=== PATIENT | female | born 2000 | race Caucasian/White ===

== ENCOUNTER 2020-09-30 12:07 | Emergency (ER) | payer SELFPAY ==
[~2020-09-30] VITALS: Ht 157.5 cm; Wt 65.0 kg
[2020-09-30] MEDS ORDERED: IV NORMAL SALINE 1,000ML 1,000 ML IV ONE (12:30)
[2020-09-30] MEDS ORDERED: KETOROLAC 30 MG/ML VIAL. IVP ONE (12:30)
--- NOTE | 2020-09-30 12:39 | PHYS DOC ---
General Adult EDM: Chief Complaint: FEVER HPI: HPI: 20-year-old female presents with 2-day history of body aches, low back pain, and general malaise. She is feeling worse today than yesterday. She also has some nasal congestion at this time. She had a fever of 100.1 at home. 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 Review of Systems: Review of Systems: Constitutional: Fever, malaise, body aches. Eyes: Denies change in visual acuity HENT: Congestion Respiratory: Denies cough or shortness of breath Cardiovascular: Denies chest pain or edema GI: Denies abdominal pain, nausea, vomiting, bloody stools or diarrhea : Denies dysuria Musculoskeletal: Denies back pain or joint pain Integument: Denies rash Neurologic: Denies headache, focal weakness or sensory changes Endocrine: Denies polyuria or polydipsia Lymphatic: Denies swollen glands Psychiatric: Denies depression or anxiety Current Medications: Current Meds: Current Medications Medications (Trade) Dose Ordered Sig/Amy Start Time Stop Time Status Last Admin Dose Admin Ketorolac Tromethamine (Toradol 30mg Vial) 30 mg 1X ONCE 09/30/20 12:30 09/30/20 12:31 UNV Sodium Chloride 1,000 ml @ 1,000 mls/hr 1X ONCE 09/30/20 12:30 09/30/20 13:29 Allergies: Allergies: Allergies Coded Allergies Type Severity Reaction Last Updated Verified Sulfa (Sulfonamide Antibiotics) Allergy Unknown 09/30/20 Yes acetaminophen Allergy Unknown 09/30/20 Yes oxycodone Allergy Unknown 09/30/20 Yes Physical Exam: PE: Constitutional: Well developed, well nourished, no acute distress, non-toxic appearance. [] HENT: Normocephalic, atraumatic, bilateral external ears normal, oropharynx moist, no oral exudates, nose normal. [] Eyes: PERRLA, EOMI, conjunctiva normal, no discharge. [] Neck: Normal range of motion, no tenderness, supple, no stridor. [] Cardiovascular: Heart rate regular rhythm, no murmur [] Lungs & Thorax: Bilateral breath sounds clear to auscultation [] Abdomen: Bowel sounds normal, soft, no tenderness, no masses, no pulsatile masses. [] Skin: Warm, dry, no erythema, no rash. [] Back: No tenderness, no CVA tenderness. [] Extremities: No tenderness, no cyanosis, no clubbing, ROM intact, no edema. [] Neurologic: Alert and oriented X 3, normal motor function, normal sensory function, no focal deficits noted. [] Psychologic: Affect normal, judgement normal, mood normal. [] EKG: EKG: [] Radiology/Procedures: Radiology/Procedures: [] Heart Score: Risk Factors: Risk Factors: DM, Current or recent (<one month) smoker, HTN, HLP, family history of CAD, obesity. Risk Scores: Score 0 - 3: 2.5% MACE over next 6 weeks - Discharge Home Score 4 - 6: 20.3% MACE over next 6 weeks - Admit for Clinical Observation Score 7 - 10: 72.7% MACE over next 6 weeks - Early Invasive Strategies Course & Med Decision Making: Course & Med Decision Making Pertinent Labs and Imaging studies reviewed. (See chart for details) The patient has a slightly low white count of 3.3 with platelets of 108. Her urinalysis does show moderate bacteria so I will treat her for urinary tract infection. We did test her for COVID-19. She is stable for discharge at this time. [] Dragon Disclaimer: Dragon Disclaimer: This electronic medical record was generated, in whole or in part, using a voice recognition dictation system. Departure Departure: Impression: Primary Impression: Urinary tract infection Qualified Codes: N30.00 - Acute cystitis without hematuria Additional Impression: Suspected 2019 novel coronavirus infection Disposition: 01 ME HOME SELF CARE/HOMELESS Condition: STABLE Referrals: ITZEL HASSAN MD (PCP) Patient Instructions: Urinary Tract Infection, [id number] Additional Instructions: You have been tested for or diagnosed with COVID-19. It is an infection caused by a new type of coronavirus. COVID-19 will cause cold-like or mild flu symptoms in most. It can cause more severe symptoms like problems breathing in some. There is no treatment for COVID-19. The body will clear the infection over time. Self-care will help to ease discomfort. Steps to Take: Self-Care Rest as needed. Healthy habits may help you feel better. Steps include: Choose healthy foods including fruits and vegetables. Drink water throughout the day. Get plenty of sleep each night. If you smoke, try to quit. It may ease breathing. Avoid alcohol. Keep Others Healthy The virus can spread to others. Droplets are released every time you sneeze or cough. The droplets can get into the mouth, nose, or eyes of people near you and lead to infection. To lower the chances of spreading COVID-19 to others: Stay at home until your doctor has said it is safe to leave. If you tested positive this will mean staying isolated until both of the following are true: At least 7 days have passed since the start of illness. You are free of fever for at least 72 hours without the use of medicine. During this time: - Avoid public areas, events, or transportation. Do not return to work or school until your doctor has said it is safe to do so. - Call ahead if you need to go to a medical center. Let them know you may have COVID-19. It will help them guide you where to go. They may also ask you to wear a facemask when you come to the office. - If you call for emergency medical services, let them know you may have COVID- 19. While at home: - Try to avoid close contact with others. Stay about 6 feet away. - If possible, spend most of your time in a separate room from others. - Use a face mask if you will be in close contact with others such as sharing a room or vehicle. - Have someone wipe down common surfaces in the home. Use household knockdown man every day on areas like doorknobs, counters, or sinks. - Cough or sneeze into a tissue. Throw the tissue away right after use. If a tissue is not available, cough or sneeze into your elbow. - Wash your hands often. Wash them after sneezing or coughing. Use soap and water and wash for at least 20 seconds. Alcohol based hand glove cleaner can be used if soap and water is not available. - Do not prepare food for others. Avoid sharing personal items like forks, spoons, or toothbrushes. - Avoid close contact with pets while you are sick. There is no evidence of the virus passing to pets. This is a safety step until more is known about this virus. Isolation can be frustrating. Social interaction can help. Keep in touch with friends and family through phone and tech options. You can still interact with others in your home, just keep a safe distance of about 6 feet. Follow-up: Your doctors office will check in with you to see if there are any changes in your health. You may be asked to keep track of symptoms to share with them. They will also let you know when you are clear to be in public again. Problems to Look Out For: Contact your doctor if your recovery is not going as you expect. Get emergency care if you have problems such as: - Trouble breathing - Nonstop chest pain or pressure - Changes in awareness, confusion, or problems waking - Lips or face have bluish color - Worsening of symptoms If you think you have an emergency, call for emergency medical services right away. As taken from [facility] Scripts Cephalexin (KEFLEX) 500 Mg Capsule 1 CAP PO TID for UTI for 3 Days, #9 CAP 0 Refills Prov: JB STEVENSON DO 09/30/20 JB STEVENSON DO Sep 30, 2020 12:39
[2020-09-30 13:11] LABS: HEMATOCRIT 41.6 % (36.0-47.0); HEMOGLOBIN 13.7 g/dL (12.0-15.5); MEAN CORPUSCULAR HEMOGLOBIN 29 pg (25-35); MEAN CORPUSCULAR HGB CONC 33 g/dL (31-37); MEAN CORPUSCULAR VOLUME 87 fL (79-100); PLATELET COUNT 108 x10^3/uL (140-400); RED BLOOD COUNT 4.78 x10^6/uL (3.50-5.40); RED CELL DISTRIBUTION WIDTH 12.4 % (11.5-14.5); WHITE BLOOD COUNT 3.3 x10^3/uL (4.0-11.0)
[2020-09-30 13:16] LABS: CALCIUM 9.5 mg/dL (8.5-10.1); CREATININE 0.8 mg/dL (0.6-1.0); GFR 91.4; POTASSIUM 3.6 mmol/L (3.5-5.1)
[2020-09-30 13:22] LABS: ALBUMIN 4.3 g/dL (3.4-5.0); ALBUMIN/GLOBULIN RATIO 1.3 (1.0-1.7); TOTAL BILIRUBIN 0.5 mg/dL (0.2-1.0); TOTAL PROTEIN 7.7 g/dL (6.4-8.2)
[2020-09-30 13:22] LABS: BACTERIA,URINE MOD /HPF (0-FEW); BILIRUBIN,URINE NEG (NEG); CLARITY,URINE HAZY; COLOR,URINE YELLOW; GLUCOSE,URINE NEG (NEG); NITRITE,URINE NEG (NEG); RBC,URINE 0 /HPF (0-2); SQUAMOUS EPITHELIAL CELL,UR MOD /LPF; UROBILINOGEN,URINE 0.2 mg/dL (0.2 mg/dL)
[2020-09-30 13:45] LABS: % BANDS 1 % (0-9); % EOS 1 % (0-5); % LYMPHS 26 % (24-48); % MONOS 12 % (0-10); % SEGS 60 % (35-66)
[2020-09-30 13:46] LABS: PLT ESTIMATE DECREASED (ADEQUATE)
[2020-09-30] MEDS ORDERED: CEPH-264 PO (14:12)
[2020-09-30 14:20] VITALS: BP 112/51
--- NOTE | 2020-10-02 09:10 | NUR ---
IP: notified patient of COVID result, discussed precautions, advised patient to follow-up with PCP and return to ED if needed.
== END 2020-09-30 14:20 | disposition home or self-care (01) ==
LOC: ER 12:07
DX: U07.1 COVID-19 (principal); N30.00 Acute cystitis without hematuria; Z88.2 Allergy status to sulfonamides; Z88.5 Allergy status to narcotic agent; Z88.6 Allergy status to analgesic agent
CPT/HCPCS: 36415; 80053; 81001; 81025; 85007; 85025; 87086; 96361; 96374; 99283; C9803; J1885; J7030; U0003

== ENCOUNTER 2021-04-23 16:02 | Emergency (ER) | payer OTHER ==
[~2021-04-23] VITALS: Ht 160 cm; Wt 68.3 kg
[~2021-04-23 16:02] MED LIST: CEPH-264 PO
--- NOTE | 2021-04-23 16:20 | PHYS DOC ---
Past History Past Medical History: Ovarian Cyst Past Surgical History: Other Additional Past Surgical Histo: WISDOM TEETH Alcohol Use: None General Adult EDM: Chief Complaint: CHEST WALL PAIN HPI: HPI: Patient is a 20-year-old female sent at referral from urgent care for left anterior sharp chest pain. Patient states she first noted the pain when she got to work at 10 AM (6 hours prior to arrival). Patient states the pain is gradually getting worse has been constant for the past 2 to 3 hours. Says is worse with taking a deep breath and palpation. Denies any fevers, cough, short ness of breath. Denies any history of lung problems or wheezing. Had a hydro- inflation procedure done of her bladder 3 weeks ago for interstitial cystitis. Review of Systems: Review of Systems: All other systems within normal limits except for as noted in the HPI Allergies: Allergies: Allergies Coded Allergies Type Severity Reaction Last Updated Verified Sulfa (Sulfonamide Antibiotics) Allergy Unknown 09/30/20 Yes oxycodone Allergy Unknown 09/30/20 Yes Physical Exam: PE: Constitutional: Well developed, well nourished, no acute distress, non-toxic appearance. [] HENT: Normocephalic, atraumatic, bilateral external ears normal, nose normal. [] Eyes: PERRLA, conjunctiva normal, no discharge. [] Neck: No rigidity, supple, no stridor. [] Cardiovascular: Regular rate and rhythm, brisk cap refill [] Lungs & Thorax: Non labored symmetric respirations, no tachypnea or respiratory distress [] Abdomen: Soft, nondistended. Skin: Warm, dry, no erythema, no rash. [] Back: Unremarkable Extremities: No deformities, range of motion grossly intact, no lower extremity edema [] Neurologic: Alert and oriented X 3, no focal deficits noted. [] Psychologic: Affect normal, judgement normal, mood normal. [] EKG: EKG: Sinus tachycardia, heart 113 bpm. Normal axis, no ST elevation or depression, no ectopy. [] Radiology/Procedures: Radiology/Procedures: Exam performed: 2 views of the chest. Indication: Reason: chest pain / Spl. Instructions: / History: Date of Service: 04/23/2021 5:20 PM. Comparison : None available Findings: PA and lateral radiographs of the chest reveal a normal cardiomediastinal contour. The lungs are clear. No pleural fluid is seen. The visualized osseous structures are unremarkable. Impression: No acute cardiopulmonary process seen. [] Impressions: EP interpretation: Chest x-ray unremarkable. Heart Score: C/O Chest Pain: Yes HEART Score for Chest Pain: HEART Score for Chest Pain Response (Comments) Value History Slighlty/Non-Suspicious 0 ECG Normal 0 Age < 45 0 Risk Factors No Risk Factors 0 Troponin < Normal Limit 0 Total 0 Risk Factors: Risk Factors: DM, Current or recent (<one month) smoker, HTN, HLP, family history of CAD, obesity. Risk Scores: Score 0 - 3: 2.5% MACE over next 6 weeks - Discharge Home Score 4 - 6: 20.3% MACE over next 6 weeks - Admit for Clinical Observation Score 7 - 10: 72.7% MACE over next 6 weeks - Early Invasive Strategies Course & Med Decision Making: Course & Med Decision Making Pertinent Labs and Imaging studies reviewed. (See chart for details) [] Dragon Disclaimer: Dragon Disclaimer: This electronic medical record was generated, in whole or in part, using a voice recognition dictation system. Departure Departure: Impression: Primary Impression: Chest pain Disposition: HOME / SELF CARE / HOMELESS Condition: STABLE Referrals: ITZEL HASSAN MD (PCP) Patient Instructions: Chest Wall Pain Scripts Ibuprofen (IBUPROFEN) 600 Mg Tablet 600 MG PO PRN Q6-8HRS PRN for PAIN for 10 Days, #30 TAB Prov: MILANA ADAIR MD 04/23/21 MILANA ADAIR MD April 23, 2021 16:19
[2021-04-23 16:52] LABS: BASO % 1 % (0-3); EOS # 0.1 x10^3/uL (0.0-0.7); EOS % 1 % (0-3); HEMOGLOBIN 14.2 g/dL (12.0-15.5); LYMPH # 1.8 x10^3/uL (1.0-4.8); LYMPH % 31 % (24-48); MEAN CORPUSCULAR HEMOGLOBIN 29 pg (25-35); MEAN CORPUSCULAR HGB CONC 34 g/dL (31-37); MEAN CORPUSCULAR VOLUME 85 fL (79-100); MONO # 0.4 x10^3/uL (0.0-1.1); MONO % 7 % (0-9); NEUT # 3.5 x10^3uL (1.8-7.7); NEUT % 61 % (31-73); PLATELET COUNT 157 x10^3/uL (140-400); RED BLOOD COUNT 4.97 x10^6/uL (3.50-5.40); RED CELL DISTRIBUTION WIDTH 12.5 % (11.5-14.5); WHITE BLOOD COUNT 5.8 x10^3/uL (4.0-11.0)
[2021-04-23 16:56] LABS: BACTERIA,URINE 0 /HPF (0-FEW); BILIRUBIN,URINE NEG (NEG); CLARITY,URINE HAZY; COLOR,URINE PINK; GLUCOSE,URINE NEG (NEG); NITRITE,URINE NEG (NEG); RBC,URINE TNTC /HPF (0-2); UROBILINOGEN,URINE 0.2 mg/dL (0.2 mg/dL); WBC,URINE 0 /HPF (0-4)
[2021-04-23 16:57] LABS: SQUAMOUS EPITHELIAL CELL,UR OCC /LPF
[2021-04-23 17:02] LABS: CALCIUM 9.6 mg/dL (8.5-10.1); CREATININE 0.9 mg/dL (0.6-1.0); GFR 79.8; POTASSIUM 3.4 mmol/L (3.5-5.1)
[2021-04-23 17:17] LABS: MAGNESIUM 2.4 mg/dL (1.8-2.4); TOTAL BILIRUBIN 0.2 mg/dL (0.2-1.0); TOTAL PROTEIN 8.2 g/dL (6.4-8.2)
[2021-04-23] MEDS: KETOROLAC 15 MG/ML VIAL. IVP ONE (17:24)
[2021-04-23 17:45] VITALS: BP 119/77
[2021-04-23] MEDS ORDERED: IBUP600T16 PO (18:06)
--- NOTE | 2021-04-23 18:59 | EKG ---
[address] [address] Test Date: 2021-04-23 Test Time: 16:48:06 Pat Name: SANDOVAL HARMON Department: Room: Gender: F Bi Consultant: : [id number] Requested By: MILANA ADAIR Order Number: [id number] Reading MD: Julien Duran Measurements Intervals [place] Rate: 113 P: 31 NM: 142 QRS: 81 QRSD: 88 T: 22 QT: 366 QTc: 508 Interpretive Statements SINUS TACHYCARDIA Electronically Signed On 04-24-2021 14:59:01 CDT by Julien Duran
--- NOTE | 2021-04-23 19:09 | RAD ---
Exam performed: 2 views of the chest. Indication: Reason: chest pain / Spl. Instructions: / History: Date of Service: 04/23/2021 5:20 PM. Comparison : None available Findings: PA and lateral radiographs of the chest reveal a normal cardiomediastinal contour. The lungs are syl r. No pleural fluid is seen. The visualized osseous structures are unremarkable. Impression: No acute cardiopulmonary process seen. Electronically signed by: Isabelle vEans MD (04/23/2021 7:06 PM) [facility]ITAL[facility]
== END 2021-04-23 18:21 | disposition home or self-care (01) ==
LOC: ER 16:02
DX: R07.89 Other chest pain (principal); Z88.2 Allergy status to sulfonamides; Z88.5 Allergy status to narcotic agent
CPT/HCPCS: 36415; 71046; 80053; 81001; 81025; 83735; 83880; 84484; 85025; 85379; 93005; 96374; 99285; J1885

== ENCOUNTER 2022-03-02 15:28 | Emergency (ER) | payer OTHER ==
[~2022-03-02] VITALS: Ht 160 cm; Wt 62.9 kg
[~2022-03-02 15:28] MED LIST changes: +IBUP600T16 PO
[2022-03-02 15:55] VITALS: BP 105/66
[2022-03-02 16:48] LABS: CLARITY,URINE CLEAR; COLOR,URINE YELLOW; GLUCOSE,URINE 100 mg/dL (NEG)
[2022-03-02 16:49] LABS: BACTERIA,URINE FEW /HPF (0-FEW); NITRITE,URINE POS (NEG); RBC,URINE 0 /HPF (0-2); SQUAMOUS EPITHELIAL CELL,UR MOD /LPF
[2022-03-02] MEDS ORDERED: CEFD300C PO (17:19)
--- NOTE | 2022-03-02 17:19 | PHYS DOC ---
Past History Past Medical History: Depression, Ovarian Cyst, Other Additional Past Medical Histor: TACHYCARDIA (PAULA MABRY APRN) Past Surgical History: No Surgical History Additional Past Surgical Histo: WISDOM TEETH (PAULA MABRY APRN) Alcohol Use: Occasionally (PAULA MABRY APRN) General Adult EDM: Chief Complaint: NAUSEA/VOMITING/DIARRHEA HPI: HPI: Patient is a 21-year-old female who presents to the emergency department for urinary frequency, urgency, dysuria, nausea with 1 episode of vomiting, bilateral lower groin pain that radiates to her flank. Patient rates her pain 3 out of 10. No treatment prior to arrival. Patient reports that she went to a walk-in clinic a few days ago was diagnosed with a UTI and placed on Macrobid. She is also told that she was constipated and was told to use a laxative. She used a laxative and did have a small bowel movement today. Patient reports that she took Azo this morning. She denies fevers, vaginal bleeding. Last menstrual period was 1 week ago. (PAULA MABRY APRN) Review of Systems: Review of Systems: Constitutional: See HPI GI: See HPI : See HPI Musculoskeletal: See HPI (PAULA MABRY APRN) Allergies: Allergies: Allergies Coded Allergies Type Severity Reaction Last Updated Verified Sulfa (Sulfonamide Antibiotics) Allergy Unknown 09/30/20 Yes oxycodone Allergy Unknown 09/30/20 Yes (PAULA MABRY APRN) Physical Exam: PE: Constitutional: Well developed, well nourished, no acute distress, non-toxic appearance. [] HENT: Normocephalic, atraumatic, bilateral external ears normal, oropharynx moist, no oral exudates, nose normal. [] Eyes: PERRL, EOMI, conjunctiva normal, no discharge. [] Neck: Normal range of motion, no stridor Cardiovascular:Heart rate regular rhythm, no murmur [] Lungs & Thorax: Bilateral breath sounds clear to auscultation [] Abdomen: Bowel sounds normal, soft, suprapubic tenderness with palpation, no abd ominal guarding or rigidity, no masses, no pulsatile masses. [] Skin: Warm, dry, no erythema, no rash. [] Back: No tenderness, no CVA tenderness. [] Extremities: No tenderness, no cyanosis, no clubbing, ROM intact, no edema. [] Neurologic: Alert and oriented X 3, normal motor function, normal sensory function, no focal deficits noted. [] Psychologic: Affect normal, judgement normal, mood normal. [] (PAULA MABRY APRN) Current Patient Data: Labs: Laboratory Tests Test 03/02/22 15:15 03/02/22 16:00 POC Urine HCG, Qualitative hcg negative (Negative) Urine Collection Type Clean catch Urine Color Yellow Urine Clarity Clear Urine pH 6.0 Urine Specific [place] 1.015 Urine Protein Neg (NEG-TRACE) Urine Glucose (UA) 100 mg/dL (NEG) Urine Ketones (Stick) >=160 mg/dL (NEG) Urine Blood Neg (NEG) Urine Nitrite Pos (NEG) Urine Bilirubin Neg (NEG) Urine Urobilinogen Dipstick 1.0 mg/dL (0.2 mg/dL) Urine Leukocyte Esterase Neg (NEG) Urine RBC 0 /HPF (0-2) Urine WBC 5-10 /HPF (0-4) Urine Squamous Epithelial Cells Mod /LPF Urine Bacteria Few /HPF (0-FEW) Vital Signs: Vital Signs Date Time Temp Pulse Resp B/P (MAP) Pulse Ox O2 Delivery O2 Flow Rate FiO2 03/02/22 15:55 98.1 90 20 105/66 (79) 96 Room Air (PAULA MABRY APRN) EKG: EKG: [] (PAULA MABRY APRN) Radiology/Procedures: Radiology/Procedures: [] (PAULA MABRY APRN) Heart Score: C/O Chest Pain: N/A Risk Factors: Risk Factors: DM, Current or recent (<one month) smoker, HTN, HLP, family history of CAD, obesity. Risk Scores: Score 0 - 3: 2.5% MACE over next 6 weeks - Discharge Home Score 4 - 6: 20.3% MACE over next 6 weeks - Admit for Clinical Observation Score 7 - 10: 72.7% MACE over next 6 weeks - Early Invasive Strategies (PAULA MABRY APRN) Course & Med Decision Making: Course & Med Decision Making Patient presents to the emergency department for cystitis symptoms as well as nausea with one episode of vomiting and lower groin pain and flank pain. Urinalysis does show a nitrite positive urinary tract infection. Patient will be treated for pyelonephritis with an antibiotic. She is advised to take Tylenol and ibuprofen for pain as well as Azo and increase her fluids. Patient is not actively vomiting. Vital signs are stable. I discussed with patient all findings and diagnostic testing as well as the need to follow-up with PCP for further evaluation and treatment or return to the ER if any new or worsening symptoms. Strict return precautions were also discussed at length. Patient voiced understanding and agreement with the plan. Patient is hemodynamically stable at the time of disposition. (PAULA MABRY APRN) Dragon Disclaimer: Dragon Disclaimer: This electronic medical record was generated, in whole or in part, using a voice recognition dictation system. (PAULA MABRY APRN) Attending Co-Sign The patient was seen and interviewed as well as examined at the bedside. The chart was reviewed. The case was discussed. Agree with the plan of care. (JB STEVENSON DO) Departure Departure: Impression: Primary Impression: Pyelonephritis Disposition: HOME / SELF CARE / HOMELESS Condition: GOOD Referrals: ITZEL HASSAN MD (PCP) Patient Instructions: Pyelonephritis, Adult Additional Instructions: You are seen in the emergency department for urinary symptoms with nausea, vomiting and abdominal pain. You were noted to have a kidney infection which will be treated with an antibiotic. Please start and finish the antibiotic completely. Please discontinue your previous antibiotic. You can continue to take Azo [id number] for your pain as well as Tylenol and ibuprofen. Increase your fluids. Avoid bladder irritants like caffeine, sugary beverages or alcohol. Follow-up with your primary care provider on Friday regarding your ER visit. Return to the emergency department if you develop worsening of your pain, intractable nausea or vomiting, high fevers refractory to treatment, blood in your stools or vomit or any new worsening concerns. Scripts Cefdinir (CEFDINIR) 300 Mg Capsule 1 CAP PO BID for INFECTION for 10 Days, #20 CAP 0 Refills Prov: PAULA MABRY APRN 03/02/22 PAULA MABRY APRN Mar 02, 2022 17:19 JB STEVENSON DO Mar 03, 2022 16:57
== END 2022-03-02 17:40 | disposition home or self-care (01) ==
LOC: ER 15:28
DX: N12 Tubulo-interstitial nephritis, not specified as acute or chronic (principal); Z88.2 Allergy status to sulfonamides; Z88.5 Allergy status to narcotic agent
CPT/HCPCS: 81001; 81025; 87086; 99283